=== PATIENT | female | born 1940 | race Two or more races ===

== ENCOUNTER 2022-10-22 09:52 | Outpatient (CLI) | payer OTHER | END 2022-10-22 09:56 | disposition home or self-care (01) | LOC: SONOGRAMA 09:52 | PROVIDERS: ATTEND Pathology Anatomic Pathology | DX: D37.039 Neoplasm of uncertain behavior of the major salivary glands, unspecified (principal); D37.030 Neoplasm of uncertain behavior of the parotid salivary glands ==

== ENCOUNTER 2022-11-26 11:10 | Outpatient (CLI) | payer OTHER | END 2022-11-26 11:12 | disposition home or self-care (01) | LOC: SONOGRAMA 11:10 | PROVIDERS: ATTEND Pathology Anatomic Pathology & Clinical Pathology | DX: D37.030 Neoplasm of uncertain behavior of the parotid salivary glands (principal) ==